=== PATIENT | female | born 1970 | race Caucasian/White ===

== ENCOUNTER 2020-11-18 10:05 | Emergency (ER) | payer OTHER ==
[~2020-11-18 10:05] MED LIST: ETODOLAC500 MG PO; IBUPROFEN800 MG PO; NAPROXEN500 MG PO
[2020-11-18] MEDS ORDERED: BACLOFEN 10MG T10 MG PO (14:21)
[2020-11-18] MEDS ORDERED: NAPROXEN500 MG PO (14:21)
== END 2020-11-18 14:45 | disposition home or self-care (01) ==
LOC: FER 10:05
DX: S50.12XA Contusion of left forearm, initial encounter (principal); S20.224A Contusion of middle back wall of thorax, initial encounter; S30.0XXA Contusion of lower back and pelvis, initial encounter; F17.210 Nicotine dependence, cigarettes, uncomplicated; Z88.0 Allergy status to penicillin; Z88.5 Allergy status to narcotic agent; W10.9XXA Fall (on) (from) unspecified stairs and steps, initial encounter
CPT/HCPCS: 72125; 72128; 72131; 96372; J1100; J1885

== ENCOUNTER 2020-12-10 19:30 | Emergency (ER) | payer OTHER ==
[~2020-12-10 19:30] MED LIST changes: +BACLOFEN 10MG T10 MG PO
[2020-12-10 19:59] LABS: BASOPHIL 0.6 % (0-2); EOSINOPHIL 1.4 % (0-5); HCT 41.8 % (37.0-47.0); HGB 14.2 g/dl (12.5-16.0); LYMPHOCYTE 37.4 % (15-48); MCH 30.4 pg (25.0-31.0); MCV 89.5 fL (78.0-100.0); MPV 8.7 fL (6.0-9.5); NEUTROPHIL 54.3 % (41-80); NRBC 0; PLT 300 K/uL (150-400); RBC 4.67 M/uL (4.20-5.40); RDW 13.7 % (11.5-14.0); WBC 7.1 K/uL (4.0-10.5)
[2020-12-10 20:17] LABS: BUN/CREAT RATIO (CALC) 21.5 RATIO; CREATININE 0.65 mg/dL (0.51-0.95); POTASSIUM 3.8 mmol/L (3.5-5.1)
[2020-12-10 20:34] LABS: BILIRUBIN NEGATIVE (NEGATIVE); BLOOD NEGATIVE Ery/uL (NEGATIVE); CLARITY CLEAR (CLEAR); COLOR YELLOW (YELLOW); GLUCOSE (U) NORMAL (NORMAL); LEUKOCYTES NEGATIVE Leu/uL (NEGATIVE); NITRITE NEGATIVE (NEGATIVE); PROTEIN NEGATIVE (NEGATIVE); SPECIFIC GRAVITY >=1.030 (1.001-1.030)
[2020-12-10] MEDS ORDERED: ILOTYCIN1 GM OU (20:42)
== END 2020-12-10 21:30 | disposition home or self-care (01) ==
LOC: FER 19:30
PROVIDERS: Nurse Practitioner Family
DX: H10.9 Unspecified conjunctivitis (principal); J45.909 Unspecified asthma, uncomplicated; Z88.0 Allergy status to penicillin; Z88.5 Allergy status to narcotic agent; Z79.899 Other long term (current) drug therapy
CPT/HCPCS: 36415; 80048; 81003; 82550; 85025; 99283; J7030